=== PATIENT | female | born 2000 | race Hispanic/Latino ===

== ENCOUNTER 2022-04-29 10:34 | Emergency (ER) | payer OTHER ==
[~2022-04-29] VITALS: Ht 154.9 cm; Wt 74.8 kg
[2022-04-29] MEDS ORDERED: KETOROLAC TROMETHAMINE 10 MG TAB PO ONE (11:50)
[2022-04-29] MEDS ORDERED: BACITRACIN OINTMENT 30GM TUBE TOP ONE (11:50)
[2022-04-29] MEDS ORDERED: BOOSTRIX/ADACEL VACCINE (DIPHTH/PERTUSS/ACELL/TETANUS) 0.5ML SYR IM ONE (12:00)
[2022-04-29] MEDS ORDERED: AMOX875T2 PO (12:25)
[2022-04-29 13:09] VITALS: BP 122/61
== END 2022-04-29 13:12 | disposition home or self-care (01) ==
LOC: M ED 10:34
DX: S61.246A Puncture wound with foreign body of right little finger without damage to nail, initial encounter (principal); W55.01XD Bitten by cat, subsequent encounter; Y92.9 Unspecified place or not applicable; Y93.9 Activity, unspecified; Y99.9 Unspecified external cause status

== ENCOUNTER → 2023-05-31 | Outpatient (REF) | payer OTHER ==
[~2023-05-31] MED LIST: AMOX875T2 PO
== END ==
LOC: M LAB REF 12:34
PROVIDERS: ATTEND Internal Medicine
DX: R19.7 Diarrhea, unspecified (principal)

== ENCOUNTER 2023-08-30 21:23 | Emergency (ER) | payer OTHER ==
[~2023-08-30] VITALS: Ht 152.4 cm; Wt 82.8 kg
[2023-08-30 21:26] VITALS: TEMP 98.6
[2023-08-30 22:34] LABS: RSV AMPLIFICATION NEGATIVE (NEGATIVE)
[2023-08-31] MEDS ORDERED: BENZ200C70 PO (00:45)
[2023-08-31] MEDS ORDERED: FLON1SPR NARES (00:45)
[2023-08-31 00:50] VITALS: BP 120/67; O2SAT 98
== END 2023-08-31 00:50 | disposition home or self-care (01) ==
LOC: M ED 21:23
DX: J06.9 Acute upper respiratory infection, unspecified (principal); Z79.2 Long term (current) use of antibiotics; Z79.899 Other long term (current) drug therapy

== ENCOUNTER → 2023-10-25 | Outpatient (REF) | payer OTHER ==
[~2023-10-25] MED LIST changes: +BENZ200C70 PO; +FLON1SPR NARES
== END ==
LOC: M LAB REF 12:18
PROVIDERS: ATTEND Internal Medicine
DX: R63.5 Abnormal weight gain (principal)

== ENCOUNTER → 2024-09-03 | Outpatient (REF) | payer OTHER ==
[2024-09-03 16:52] LABS: URINE PREG TEST NEGATIVE (NEGATIVE)
== END ==
LOC: M LAB REF 16:23
PROVIDERS: ATTEND Physician Assistant Medical
DX: R11.0 Nausea (principal)

== ENCOUNTER → 2025-08-03 | Outpatient (CLI) | payer OTHER | LOC: M CARPUL 14:34 | PROVIDERS: ATTEND Internal Medicine Cardiovascular Disease | DX: R07.9 Chest pain, unspecified (principal); R94.31 Abnormal electrocardiogram [ECG] [EKG] ==

== ENCOUNTER → 2025-08-27 | Outpatient (CLI) | payer OTHER | LOC: M CARPUL 10:24 | PROVIDERS: ATTEND Internal Medicine Cardiovascular Disease | DX: R01.1 Cardiac murmur, unspecified (principal) ==